=== PATIENT | male | born 1995 | race African-American/Black ===

== ENCOUNTER 2021-04-07 15:59 | Emergency (ER) | payer MEDICAID, OTHER ==
[~2021-04-07] VITALS: Ht 188 cm; Wt 77.0 kg
[2021-04-07 16:12] VITALS: BP 142/74
== END 2021-04-07 18:58 | disposition left against medical advice (07) ==
LOC: ER 15:59
DX: R10.9 Unspecified abdominal pain (principal); Z53.21 Procedure and treatment not carried out due to patient leaving prior to being seen by health care provider